=== PATIENT | female | born 1945 | race Asian ===

== ENCOUNTER 2017-07-11 10:07 | Emergency (ER) | payer BC, OTHER ==
[~2017-07-11] VITALS: Ht 152.4 cm; Wt 35.0 kg
[2017-07-11 10:19] VITALS: BP 161/85
--- NOTE | 2017-07-11 10:55 | NUR ---
PT W/C ASSISTED TO OVERFLOW 1
--- NOTE | 2017-07-11 10:57 | NUR ---
72/F c/o bilateral leg pain for the past two weeks. Denies injury, trauma or fall. Pt states she was prescribed pain medication but it is not helping. Pain is worse with ambulation. Pt w/c assisted into overflow. Pt found with knees bent to chest on the w/c. Full ROM. No deformities noted. PCMS intact. AOX4, sitting with patient. assisting with translation. VSS. Warm blankets provided. Comfort needs met. No distress noted.
--- NOTE | 2017-07-11 11:45 | NUR ---
Patient being evaluated by Dr. Christianson in overflow.
--- NOTE | 2017-07-11 11:50 | NUR ---
Pt taken to x-ray via w/c.
[2017-07-11 12:13] LABS: BASOPHILS # (AUTO) 0.1 K/uL (0.00-0.22); BASOPHILS % (AUTO) 1.4 % (0.0-2.0); EOSINOPHILS # (AUTO) 0.1 K/uL (0-0.4); EOSINOPHILS % (AUTO) 0.7 % (0.0-4.0); HEMATOCRIT 35.5 % (36-48); HEMOGLOBIN 12.3 g/dL (12.0-16.0); LYMPHOCYTES # (AUTO) 2.2 K/uL (2.5-16.5); LYMPHOCYTES % (AUTO) 24.6 % (20.5-51.1); MEAN CORPUSCULAR HEMOGLOBIN 31 pg (27-31); MEAN CORPUSCULAR HGB CONC 35 g/dL (33-37); MEAN CORPUSCULAR VOLUME 89 fL (80-94); MONOCYTES # (AUTO) 0.6 K/uL (0.8-1.0); MONOCYTES % (AUTO) 6.8 % (1.7-9.3); NEUTROPHILS # (AUTO) 5.8 K/uL (1.8-7.7); NEUTROPHILS % (AUTO) 66.5 % (42.2-75.2); PLATELET COUNT (AUTO) 278 K/uL (140-450); RED BLOOD CELL COUNT(AUTO) 3.99 MIL/uL (4.20-5.40); RED CELL DISTRIBUTION WIDTH 11.8 % (11.6-13.7); WHITE BLOOD COUNT (AUTO) 8.8 K/uL (4.8-10.8)
[2017-07-11 12:36] LABS: ANION GAP 12.2 (8-16); CARBON DIOXIDE 29.2 mmol/L (21-32); CHLORIDE 98 mmol/L (98-107); CREATININE 1.2 mg/dL (0.6-1.3); GLUCOSE 272 mg/dL (74-106); POTASSIUM 4.4 mmol/L (3.5-5.1); SODIUM SERUM 135 mmol/L (136-145); UREA NITROGEN, BLOOD 30 mg/dL (7-18)
[2017-07-11 12:42] LABS: ASPARTATE AMINOTRANSFERASE 21 U/L (15-37); TOTAL BILIRUBIN 0.4 mg/dL (0.0-1.0)
[2017-07-11 12:50] LABS: APPEARANCE,URINE CLEAR (CLEAR); BILIRUBIN,URINE NEGATIVE (NEGATIVE); BLOOD, URINE NEGATIVE (NEGATIVE); COLOR,URINE YELLOW (YELLOW); LEUKOCYTE ESTERASE ,URINE NEGATIVE (NEGATIVE); NITRITE, URINE NEGATIVE (NEGATIVE); UGLUCOSE 3+ (NEGATIVE)
[2017-07-11] MEDS ORDERED: traMADol 50 MG TAB PO ONE (13:35)
[2017-07-11 14:28] VITALS: BP 172/85
--- NOTE | 2017-07-11 14:28 | NUR ---
Patient discharged with v/s stable. Written and verbal after care instructions given and explained. Patient alert, oriented and verbalized understanding of instructions. Wheel Chair assisted to car. All questions addressed prior to discharge. ID band removed. Patient advised to follow up with PMD. Rx of Tramadol 50mg given. Patient educated on indication of medication including possible reaction and side effects. Opportunity to ask questions provided and answered.
== END 2017-07-11 14:28 | disposition home or self-care (01) ==
LOC: MED 10:07
DX: M79.605 Pain in left leg (principal); M79.604 Pain in right leg; M54.5 Low back pain; E11.9 Type 2 diabetes mellitus without complications; I10 Essential (primary) hypertension; E78.00 Pure hypercholesterolemia, unspecified
CPT/HCPCS: 36415; 72110; 72170; 80053; 81003; 84484; 85025; 99285

== ENCOUNTER 2021-07-25 12:25 | Emergency (ER) | payer OTHER ==
[~2021-07-25] VITALS: Ht 152.4 cm; Wt 38.1 kg
[2021-07-25 12:28] VITALS: BP 202/81
--- NOTE | 2021-07-25 14:05 | NUR ---
PT TAKEN TO BED 08 VIA W/C.
[2021-07-25 14:11] LABS: BASOPHILS % (AUTO) 0.6 % (0.0-2.0); EOSINOPHILS # (AUTO) 0.1 K/uL (0-0.4); EOSINOPHILS % (AUTO) 1.9 % (0.0-4.0); HEMATOCRIT 32.1 % (36-48); LYMPHOCYTES # (AUTO) 1.6 K/uL (2.5-16.5); MEAN CORPUSCULAR HEMOGLOBIN 30 pg (27-31); MEAN CORPUSCULAR HGB CONC 34 g/dL (33-37); MEAN CORPUSCULAR VOLUME 88.6 fL (80-94); MONOCYTES # (AUTO) 0.3 K/uL (0.8-1.0); MONOCYTES % (AUTO) 5.6 % (1.7-9.3); NEUTROPHILS % (AUTO) 65.9 % (42.2-75.2); PLATELET COUNT (AUTO) 248 K/uL (140-450); RED BLOOD CELL COUNT(AUTO) 3.62 MIL/uL (4.20-5.40)
[2021-07-25] MEDS: LABETALOL 100 MG/20 ML VIAL IVP ONE (14:34)
[2021-07-25 14:38] LABS: ALBUMIN 3.5 g/dL (3.4-5.0); ANION GAP 12.9 (8-16); ASPARTATE AMINOTRANSFERASE 22 U/L (15-37); CARBON DIOXIDE 26.9 mmol/L (21-32); CHLORIDE 108 mmol/L (98-107); CREATININE 1.4 mg/dL (0.6-1.3); GLUCOSE 323 mg/dL (74-106); LIPASE 280 U/L (73-393); POTASSIUM 4.8 mmol/L (3.5-5.1); SODIUM SERUM 143 mmol/L (136-145); TOTAL BILIRUBIN 0.3 mg/dL (0.0-1.0); UREA NITROGEN, BLOOD 22 mg/dL (7-18)
--- NOTE | 2021-07-25 15:44 | NUR ---
76 Y/O F BIB [facility] FOR CHEST PAIN FOR ONE MONTH, POOR APPETITE AND WEIGHT LOSS. C/O GENERAL BODY PAIN AND FALLS. PT BP WAS AT 222/59. NKA PMH: NEUROPATHY, DM, HTN
[2021-07-25] MEDS ORDERED: METF-1243 PO (16:03)
[2021-07-25] MEDS ORDERED: SITA100T8 PO (16:03)
[2021-07-25] MEDS ORDERED: FERR324T11 PO (16:04)
[2021-07-25] MEDS ORDERED: GABA100C PO (16:05)
[2021-07-25] MEDS ORDERED: ACET500C86 PO (16:06)
[2021-07-25] MEDS ORDERED: OMEP-278 PO (16:07)
[2021-07-25] MEDS ORDERED: FURO-570 PO (16:07)
[2021-07-25] MEDS ORDERED: SIMV20TA1 PO (16:08)
[2021-07-25] MEDS ORDERED: LOSA100T1 PO (16:08)
[2021-07-25] MEDS: NACL 0.9% 1,000 ML IV ONE (16:12)
[2021-07-25] MEDS: ASPIRIN 325 MG TAB PO ONE (16:17)
--- NOTE | 2021-07-25 19:28 | NUR ---
REPORT GIVEN TO DANE AGUIRRE.
--- NOTE | 2021-07-25 19:30 | NUR ---
FOR REPEAT TROPONIN, SENT TO LAB
--- NOTE | 2021-07-25 19:40 | NUR ---
TROPONIN RESULT - 0.017 , BACK AND NOTED BY JULI AND DR. EPPERSON AND FOR TRANSFER, TO [facility] BED [id number]
--- NOTE | 2021-07-25 22:00 | NUR ---
FOR TRANSFER TO [facility] PER FOR INSURANCE CONVINIENCE
--- NOTE | 2021-07-25 22:30 | NUR ---
REPORT GIVEN TO TREMAINE AGUIRRE.
--- NOTE | 2021-07-25 22:46 | NUR ---
Patient to be transferred to [facility]. Is being transferred due to INSURANCE. Receiving facility has accepting physician and available space. ER physician has signed transfer form. Patient or responsible green party has agreed to transfer and signed form. Patient belongings inventoried and will be sent with patient. Copy of nursing notes, lab reports, EKG, Physicians Orders and X-rays to be sent with patient. Report called to TREMAINE RN at receiving facility. [facility] ambulance service has been called for transfer. ETA is AN HOUR.
--- NOTE | 2021-07-26 01:30 | NUR ---
up and about waiting for the transport.
--- NOTE | 2021-07-26 03:37 | NUR ---
[facility] TRANSPORT AT BEDSIDE
[2021-07-26 04:01] VITALS: BP 175/82
--- NOTE | 2021-07-26 04:01 | NUR ---
FOR TRANSFER FOR [facility] FOR INSURANCE CONVINIENT UNDER THE SERVICE DR. BA.
== END 2021-07-26 03:31 | disposition short-term general hospital (02) ==
LOC: MED 12:25
DX: I16.1 Hypertensive emergency (principal); R07.9 Chest pain, unspecified; D64.9 Anemia, unspecified; R42 Dizziness and giddiness; E11.9 Type 2 diabetes mellitus without complications; I10 Essential (primary) hypertension; Z79.84 Long term (current) use of oral hypoglycemic drugs; Z79.899 Other long term (current) drug therapy
CPT/HCPCS: 36415; 71045; 80053; 83690; 84484; 85025; 87426; 93005; 96361; 96374; 99285; J3490; J7030